=== PATIENT | male | born 1995 | race Caucasian/White ===

== ENCOUNTER 2023-09-11 23:53 | Emergency (ER) | payer MEDICAID ==
[2023-09-12] MEDS ORDERED: Ondansetron 4 MG/2 ML SDV IVPUSH ONE (00:23)
[2023-09-12] MEDS ORDERED: Sodium Chloride 0.9% 10 ML Syringe FLUSH PRN (00:23)
[2023-09-12] MEDS ORDERED: Morphine 4 MG/ML VIAL IVPUSH ONE (00:23)
[2023-09-12] MEDS ORDERED: Prochlorperazine 10 MG/2 ML SDV IVPUSH ONE (00:23)
[2023-09-12] MEDS ORDERED: Sodium Chloride 0.9% 1,000 ML IV SCH (00:30)
[2023-09-12 00:31] LABS: BASOPHILS ABSOLUTE AUTO 0.01 K/uL (0.02-0.10); BASOPHILS PERCENT AUTO 0.1 % (0.0-0.5); EOSINOPHILS ABSOLUTE AUTO 0.08 K/uL (0.04-0.40); EOSINOPHILS PERCENT AUTO 0.8 % (1.0-5.0); HEMATOCRIT 47.8 % (40.0-54.0); HEMOGLOBIN 16.7 g/dL (13.0-18.0); LYMPHOCYTES ABSOLUTE AUTO 1.74 K/uL (1.50-4.00); LYMPHOCYTES PERCENT AUTO 18.2 % (20.0-40.0); MEAN CORPUSCULAR HEMOGLOBIN 29.7 pg (27.0-32.0); MEAN CORPUSCULAR HGB CONC 34.9 g/dL (31.0-35.0); MEAN CORPUSCULAR VOLUME 85 fL (76-96); MEAN PLATELET VOLUME 11.4 fL (6.0-10.0); MONOCYTES PERCENT AUTO 6.3 % (3.0-10.0); NEUTROPHILS ABSOLUTE AUTO 7.15 K/uL (2.00-7.50); NEUTROPHILS PERCENT AUTO 74.6 % (45.0-70.0); PLATELET COUNT,PLT 178 K/uL (150-400); RED BLOOD CELL COUNT 5.63 M/uL (4.50-6.50); RED CELL DISTRIBUTION WIDTH 14.2 % (11.0-16.0); WHITE BLOOD CELL COUNT,WBC 9.6 K/uL (4.0-11.0)
[2023-09-12 00:45] LABS: A/G RATIO 0.9 (0.8-2.0); ALBUMIN 3.7 g/dL (3.4-5.0); ANION GAP 18.1 mmol/L (5.0-15.0); BILIRUBIN TOTAL 1.1 mg/dL (0.0-1.0); BUN/CREATININE RATIO 14.7 (6-25); CALCIUM 8.8 mg/dL (8.5-10.1); CREATININE 1.02 mg/dL (0.70-1.30); EST CRCL DRUG DOSING (CG) 126.74 mL/min; POTASSIUM,K 4.1 mmol/L (3.5-5.1); PROTEIN TOTAL,TP 7.7 g/dL (6.4-8.2)
[2023-09-12] MEDS ORDERED: Ketorolac 30 MG/ML SDV IVPUSH ONE (01:08)
[2023-09-12] MEDS ORDERED: Tamsulosin 0.4 MG Cap.ER PO ONE (01:56)
[2023-09-12] MEDS ORDERED: Promethazine 12.5 MG in Sodium Chloride 0.9% 50 ML IV PRN (01:56)
[2023-09-12] MEDS: Sodium Chloride 0.9% 1,000 ML IV SCH ×3 (02:00→19:28)
[2023-09-12] MEDS: Ciprofloxacin in D5W 400 MG in Premix Bag 1 BAG IV SCH ×4 (02:29→08:12)
[2023-09-12] MEDS: HYDROmorphone 2 MG/ML Syringe IV PRN ×2 (04:20→08:39)
[2023-09-12 08:40] LABS: APPEARANCE,URINE TURBID (CLEAR); BILIRUBIN,URINE NEGATIVE (NEGATIVE); COLOR,URINE YELLOW; GLUCOSE,URINE NEGATIVE (NEGATIVE); KETONES,URINE 15 mg/dL (NEGATIVE); LEUKOCYTE ESTERASE,URINE LARGE (NEGATIVE); NITRITE,URINE NEGATIVE (NEGATIVE); OCCULT BLOOD,URINE LARGE (NEGATIVE); PH,URINE 5.5 (5.0-8.0); PROTEIN,URINE 30 mg/dL (NEGATIVE); UROBILINOGEN,URINE 0.2 E.U./dL (0.2-1.0)
[2023-09-12 08:46] LABS: BACTERIA,URINE OCCASIONAL /HPF; MUCUS,URINE FEW /HPF; RBC,URINE 0-5 /HPF; WBC CLUMPS,URINE OCCASIONAL /HPF; WBC,URINE >100 /HPF
[2023-09-12] MEDS ORDERED: Ketorolac 30 MG/ML SDV IVPUSH SCH (10:15)
[2023-09-12] MEDS ORDERED: Ketorolac 60 MG/2 ML SDV IVPUSH SCH (10:15)
[2023-09-12] MEDS ORDERED: Ketorolac 10 MG Tab PO SCH (13:45)
[2023-09-12] MEDS: Acetaminophen/HYDROcodone 325-5 MG Tab PO PRN ×3 (13:53→23:30)
[2023-09-12] MEDS ORDERED: PREGABALIN 200 MG PO SCH (14:00)
[2023-09-12] MEDS: Pregabalin 75 MG Cap PO SCH ×2 (14:16→19:33)
[2023-09-12] MEDS: Pregabalin 50 MG Cap PO SCH ×2 (14:16→19:33)
[2023-09-12] MEDS: Ketorolac 10 MG Tab PO PRN (16:46)
[2023-09-12] MEDS ORDERED: Cyclobenzaprine 5 MG Tab PO PRN (17:57)
[2023-09-12] MEDS: Ondansetron 4 MG Tab.DIS PO PRN (18:17)
[2023-09-12] MEDS: Ciprofloxacin in D5W 200 ML IV SCH (19:30)
[2023-09-13] MEDS: Sodium Chloride 0.9% 1,000 ML IV SCH ×2 (04:01→13:46)
[2023-09-13] MEDS: Pregabalin 75 MG Cap PO SCH ×2 (07:44→13:45)
[2023-09-13] MEDS: Ciprofloxacin in D5W 200 ML IV SCH (07:44)
[2023-09-13] MEDS: Pregabalin 50 MG Cap PO SCH ×2 (07:44→13:46)
[2023-09-13] MEDS ORDERED: Escitalopram 20 MG Tab ONE (07:46)
[2023-09-13] MEDS ORDERED: Escitalopram 20 MG Tab PO SCH (08:00)
[2023-09-13 08:25] LABS: BASOPHILS ABSOLUTE AUTO 0.01 K/uL (0.02-0.10); BASOPHILS PERCENT AUTO 0.1 % (0.0-0.5); EOSINOPHILS ABSOLUTE AUTO 0.06 K/uL (0.04-0.40); EOSINOPHILS PERCENT AUTO 0.8 % (1.0-5.0); HEMATOCRIT 46.7 % (40.0-54.0); HEMOGLOBIN 16.1 g/dL (13.0-18.0); LYMPHOCYTES ABSOLUTE AUTO 0.78 K/uL (1.50-4.00); LYMPHOCYTES PERCENT AUTO 10.9 % (20.0-40.0); MEAN CORPUSCULAR HEMOGLOBIN 29.7 pg (27.0-32.0); MEAN CORPUSCULAR HGB CONC 34.5 g/dL (31.0-35.0); MEAN CORPUSCULAR VOLUME 86 fL (76-96); MEAN PLATELET VOLUME 10.9 fL (6.0-10.0); MONOCYTES ABSOLUTE AUTO 0.51 K/uL (0.20-0.80); MONOCYTES PERCENT AUTO 7.2 % (3.0-10.0); NEUTROPHILS ABSOLUTE AUTO 5.77 K/uL (2.00-7.50); PLATELET COUNT,PLT 143 K/uL (150-400); RED BLOOD CELL COUNT 5.42 M/uL (4.50-6.50); RED CELL DISTRIBUTION WIDTH 14.2 % (11.0-16.0); WHITE BLOOD CELL COUNT,WBC 7.1 K/uL (4.0-11.0)
[2023-09-13] MEDS: Ondansetron 4 MG Tab.DIS PO PRN (09:28)
[2023-09-13] MEDS: Ketorolac 10 MG Tab PO PRN (09:28)
[2023-09-13 10:21] LABS: APPEARANCE,URINE SLIGHTLY CLOUDY (CLEAR); BILIRUBIN,URINE NEGATIVE (NEGATIVE); COLOR,URINE YELLOW; GLUCOSE,URINE NEGATIVE (NEGATIVE); KETONES,URINE NEGATIVE (NEGATIVE); LEUKOCYTE ESTERASE,URINE MODERATE (NEGATIVE); NITRITE,URINE NEGATIVE (NEGATIVE); OCCULT BLOOD,URINE SMALL (NEGATIVE); PH,URINE 5.5 (5.0-8.0); PROTEIN,URINE NEGATIVE (NEGATIVE); UROBILINOGEN,URINE 0.2 E.U./dL (0.2-1.0)
[2023-09-13 10:28] LABS: BACTERIA,URINE FEW /HPF; RBC,URINE 0-5 /HPF; SQUAMOUS EPITHELIAL CELLS,UR OCCASIONAL /HPF; WBC CLUMPS,URINE OCCASIONAL /HPF; WBC,URINE 50-75 /HPF
[2023-09-13] MEDS ORDERED: Acetaminophen/HYDROcodone 325-5 MG Tab ONE (13:32)
== END 2023-09-13 14:32 | disposition home or self-care (01) ==
LOC: LB.ED 23:53 → LB.MS 09-12 01:56 → UNDOADMOB 09-12 02:00 → LB.MS 09-12 02:00
PROVIDERS: ADMIT Surgery; ATTEND Surgery
DX: N20.1 Calculus of ureter (principal); Z88.8 Allergy status to other drugs, medicaments and biological substances
CPT/HCPCS: 36415; 51701; 74176; 80053; 81001; 83690; 85025; 87086; 96361; 96365; 96366; 96375; 96376; 99283; 99285; A9270; G0378; J0744; J0780; J1170; J1885; J2270; J2405; J7030; Q0162; 96374